=== PATIENT | female | born 1980 | race Caucasian/White ===

== ENCOUNTER 2017-05-03 12:38 | Inpatient (IN) | payer MEDICAID ==
[~2017-05-03] VITALS: Ht 160 cm; Wt 95.3 kg
[2017-05-03 12:53] VITALS: BP 125/68
--- NOTE | 2017-05-03 12:58 | NUR ---
PT AMBULATED TO BED 2
--- NOTE | 2017-05-03 12:58 | NUR ---
Note undone in EDM - 05/03/17 at 1442 by [email or web address] PATIENT PRESENTS TO ED WITH ABDOMINAL PAIN AND N/V FROM POAST GASTRIC SURGERY IN [place]. SKIN IS PINK/WARM/DRY; AAOX4 WITH EVEN AND STEADY GAIT; LUNGS CLEAR BL; HR EVEN AND REGULAR; PT DENIES ANY FEVER, CP, SOB, OR COUGH AT THIS TIME; PATIENT STATES PAIN OF 10/10 AT THIS TIME; VSS; PATIENT POSITIONED FOR COMFORT; HOB ELEVATED; BEDRAILS UP X2; BED DOWN. ER MD MADE AWARE OF PT STATUS.
--- NOTE | 2017-05-03 12:58 | NUR ---
PATIENT PRESENTS TO ED WITH ABDOMINAL PAIN AND C/O N/POST GASTRIC BYPASS IN [place] . SKIN IS PINK/WARM/DRY; AAOX4 WITH EVEN AND STEADY GAIT; LUNGS CLEAR BL; HR EVEN AND REGULAR; PT DENIES ANY FEVER, CP, SOB, OR COUGH AT THIS TIME; PATIENT STATES PAIN OF 9/10 AT THIS TIME; VSS; PATIENT POSITIONED FOR COMFORT; HOB ELEVATED; BEDRAILS UP X2; BED DOWN. ER MD MADE AWARE OF PT STATUS.
[2017-05-03] MEDS ORDERED: NACL 0.9% 1,000 ML IV ONE (13:00)
[2017-05-03 13:47] LABS: APPEARANCE,URINE CLEAR (CLEAR); BLOOD, URINE 3+ (NEGATIVE); COLOR,URINE YELLOW (YELLOW); LEUKOCYTE ESTERASE ,URINE NEGATIVE (NEGATIVE); NITRITE, URINE NEGATIVE (NEGATIVE); UGLUCOSE NEGATIVE (NEGATIVE)
[2017-05-03 14:01] LABS: BASOPHILS # (AUTO) 0.1 K/uL (0.00-0.22); BASOPHILS % (AUTO) 1.2 % (0.0-2.0); EOSINOPHILS # (AUTO) 0.2 K/uL (0-0.4); EOSINOPHILS % (AUTO) 2.1 % (0.0-4.0); HEMOGLOBIN 13.3 g/dL (12.0-16.0); LYMPHOCYTES # (AUTO) 1.1 K/uL (2.5-16.5); LYMPHOCYTES % (AUTO) 9.8 % (20.5-51.1); MEAN CORPUSCULAR HEMOGLOBIN 29 pg (27-31); MEAN CORPUSCULAR HGB CONC 32 g/dL (33-37); MEAN CORPUSCULAR VOLUME 88.1 fL (80-94); MONOCYTES # (AUTO) 0.5 K/uL (0.8-1.0); MONOCYTES % (AUTO) 4.4 % (1.7-9.3); NEUTROPHILS % (AUTO) 82.5 % (42.2-75.2); PLATELET COUNT (AUTO) 206 K/uL (140-450); RED BLOOD CELL COUNT(AUTO) 4.66 MIL/uL (4.20-5.40); RED CELL DISTRIBUTION WIDTH 11.8 % (11.6-13.7); WHITE BLOOD COUNT (AUTO) 10.9 K/uL (4.8-10.8)
[2017-05-03 14:14] LABS: BILIRUBIN,URINE NEGATIVE (NEGATIVE)
[2017-05-03 14:21] LABS: RBC,URINE 80-100 /HPF (0-5); WBC,URINE 16-25 (MOD) /HPF (0-5)
--- NOTE | 2017-05-03 14:58 | NUR ---
PT TAKEN TO CT
--- NOTE | 2017-05-03 15:17 | NUR ---
Pt returned from ct via gurney accompanied by radiology interventional physician. Returned to rm 2 without incident.
--- NOTE | 2017-05-03 15:23 | NUR ---
cinthia gonzales kwaw by bedside examining patient
[2017-05-03 15:44] LABS: ANION GAP 23.4 (8-16); CARBON DIOXIDE 13.3 mmol/L (21-32); POTASSIUM 3.7 mmol/L (3.5-5.1)
[2017-05-03 15:45] LABS: CREATININE 0.8 mg/dL (0.6-1.3)
[2017-05-03 15:46] LABS: ALBUMIN 3.7 g/dL (3.4-5.0); TOTAL BILIRUBIN 0.4 mg/dL (0.0-1.0)
[2017-05-03] MEDS ORDERED: metroNIDAZOLE 500 MG/NS PREMIX 100 ML IV ONE (16:05)
[2017-05-03] MEDS ORDERED: MORPHINE SULFATE 4 MG/ML SYR IVP ONE (17:10)
[2017-05-03] MEDS ORDERED: ONDANSETRON 4 MG/2 ML VIAL IVP ONE (17:10)
[2017-05-03] MEDS ORDERED: LORazepam 2 MG/ML VIAL IVP ONE (17:10)
[2017-05-03] MEDS: NACL 0.9% 1,000 ML IV SCH (17:36)
[2017-05-03] MEDS ORDERED: DOCUSATE SODIUM 100 MG GELCAP PO PRN (17:40)
[2017-05-03] MEDS ORDERED: ACETAMINOPHEN 325 MG TAB PO PRN (17:40)
[2017-05-03] MEDS ORDERED: MORPHINE SULFATE 2 MG/ML SYR IVP PRN (17:40)
[2017-05-03 18:49] LABS: AMYLASE 45 U/L (25-115); CHOL/HDL RATIO 3.8 (1-4.5); FREE T4 (FREE THYROXINE) 0.92 ng/dL (0.76-1.46); HDL CHOLESTEROL 51 mg/dL (40-60); LACTATE DEHYDROGENASE 296 U/L (81-234); LDL (CALC) 117 mg/dL (60-100); MAGNESIUM 1.7 mg/dL (1.8-2.4); PHOSPHORUS 3.1 mg/dL (2.5-4.9); THYROID STIMULATING HORMONE 1.78 uIU/mL (0.34-3.74); TRIGLYCERIDES 121 mg/dL (30-150)
[2017-05-03 18:50] LABS: PROTHROMBIN TIME 12.6 secs (10.8-13.4)
--- NOTE | 2017-05-03 18:54 | NUR ---
Patient will be admitted to care of [facility]. Admited to Tele. Will go to room 106a. Belongings list completed. Bedside report to Wanda HAGAN.
--- NOTE | 2017-05-03 19:00 | NUR ---
PATIENT ARRIVED ON UNIT, ER NURSE GAVE REPORT AT BEDSIDE. PATIENT IS AAOX4, NO S/S OF ACUTE DISTRESS ON ROOM AIR, NO C/O PAIN, IV NOTED ON THE RIGHT AC 20G WITH IVF'S INFUSING WELL, ON TELE MONITOR, NOTED HEALED SCAR ON THE ABD FROM PRIOR BYPASS SURGERY DONE IN [place]. C/O WATERY BLOODY DIARRHEA. DISCUSSED POC WITH PATIENT, SHE VERBALIZED UNDERSTANDING, V/S TAKEN WILL ENDORSED PATIENT IN STABLE CONDITION TO NIGHT NURSE.
--- NOTE | 2017-05-03 19:30 | NUR ---
INSTRUCTED HOW TO COLLECT BM FOR STOOL C-DIFF, VERBALIZED UNDERSTANDING. WILL CALL NURSE WHEN SPECIMEN AVAILABLE. Addendum: 05/03/17 at 2245 by Ankita Dodge LVN ERROR:TIME OF THIS ENTRY IS 2129, NOT 1929.
[2017-05-03 19:35] VITALS: BP 105/49
[2017-05-03] MEDS ORDERED: MAG SULF 2000 MG/WATER PREMIX 50 ML IV SCH (19:35)
--- NOTE | 2017-05-03 19:35 | NUR ---
Admitted from ER TO TELEMETRY UNIT , with chief complaint of DIARRHEA, ABDOMINAL AND BACK PAIN, STARTED YESTERDAY, 36 y/o ,Female, Cooperative, AWAKE, A/OX4. RESPIRATION EVEN AND UNLABORED. WITH POSITIVE BOWEL SOUNDS ON ALL QUADRANTS, WITH HEALED SCAR IN THE ABDOMEN, HAD GASTRIC BYPASS LAST APRIL 27, 2017 IN [place]. STATED HAD SEVEN TIMES DIARRHEA BEFORE COMING TO THE HOSPITAL. LAST BM IS AT 1607 IN ER, HAD LOOSE, YELLOWISH BM, MODERATE AMOUNT. HEAD TO TOE ASSESSMENT DONE, SKIN IS INTACT. PLAN OF CARE FOR THE SHIFT DISCUSSED. VERBALIZED UNDERSTANDING. DENIES PAIN 0/10 oriented to call light, bed, phone,television, bathroom, smoking policy, visiting hours, procedures, ID bracelet on. Belongings list checked. Addendum: 05/04/17 at 0209 by Ankita Dodge LVN CORRECTION IN THIS ENTRY: SURGICAL INCISION IN THE ABDOMEN (3), THREE COVERED WITH DRESSING DRY AND INTACT.(1) INCISION IN THE LEFT SIDE OF ABDOMEN NOTED WITH SEROSANGUINEOUS DISCHARGE, MINIMAL AMOUNT. WILL INFORM .
--- NOTE | 2017-05-03 19:36 | NUR ---
Patient's Plan of Care was discussed and reviewed with INSURANCE LEGAL ASSISTANT: HUGO JOHNSON
--- NOTE | 2017-05-03 19:45 | NUR ---
AMBULATED TO TO VOID, ASSISTED BY BOYFRIEND. GAIT STEADY.
[2017-05-03] MEDS: LEVOFLOXACIN 750 MG/D5W PREMIX 150 ML IV SCH (20:15)
[2017-05-03] MEDS: LOPERAMIDE 2 MG CAP PO SCH (21:00)
[2017-05-03] MEDS: BISMUTH SUBSALICYLATE 15 ML UDBTL PO SCH (21:00)
--- NOTE | 2017-05-03 21:00 | NUR ---
INFORMED DR. BAKER, WE NEED TO COLLECT STOOL SPECIMEN FOR C-DIFF, IMODIUM AND PEPTO BISMUTH CANNOT BE GIVEN YET. STATED IT'S OK.
--- NOTE | 2017-05-03 23:00 | NUR ---
APPLIED BILATERAL LEG SEQUENTIALS.
[2017-05-03] MEDS: HYDROcodone/APAP 7.5/325 MG 1 TAB PO PRN (23:33)
[2017-05-04] VITALS: BP_SYST 108; BP_SYST 97; BP_DIAS 47; BP_DIAS 57
--- NOTE | 2017-05-04 | NUR ---
WENT TO BR TO VOID, DENIES DIARRHEA.
[2017-05-04] MEDS: NACL 0.9% 1,000 ML IV SCH ×2 (01:18→05:47)
[2017-05-04 04:00] VITALS: BP 97/47
--- NOTE | 2017-05-04 04:00 | NUR ---
ON A SPECIAL DIET WRITTEN BY WHO DID GASTRIC BYPASS, SHOWED TO DR. BAKER, WILL ORDER CLEAR LIQUID FOR PATIENT BUT PATIENT SAID SHE CANNOT HAVE SUGAR IN HER DIET. AWAKE MOST OF THE TIME, STATED SLEPT ONLY FOR 2 HOURS. ADVISED TO GO BACK TO SLEEP.
[2017-05-04] MEDS: ONDANSETRON 4 MG/2 ML VIAL IM/IVP PRN ×2 (04:30→21:09)
--- NOTE | 2017-05-04 04:30 | NUR ---
NAUSEATED, MEDICATED WITH ZOFRAN 4 MG. IVP BY DANYA DAIGLE.
--- NOTE | 2017-05-04 05:00 | NUR ---
NO NAUSEA NOTED, RESTING COMFORTABLY IN BED.
[2017-05-04] MEDS: metroNIDAZOLE 500 MG/NS PREMIX 100 ML IV SCH ×3 (05:57→21:05)
[2017-05-04 06:56] LABS: BASOPHILS # (AUTO) 0.1 K/uL (0.00-0.22); BASOPHILS % (AUTO) 1.4 % (0.0-2.0); EOSINOPHILS # (AUTO) 0.2 K/uL (0-0.4); EOSINOPHILS % (AUTO) 2.2 % (0.0-4.0); HEMATOCRIT 36.8 % (36-48); HEMOGLOBIN 12.1 g/dL (12.0-16.0); LYMPHOCYTES # (AUTO) 1.1 K/uL (2.5-16.5); LYMPHOCYTES % (AUTO) 11.7 % (20.5-51.1); MEAN CORPUSCULAR HEMOGLOBIN 29 pg (27-31); MEAN CORPUSCULAR HGB CONC 33 g/dL (33-37); MEAN CORPUSCULAR VOLUME 88.1 fL (80-94); MONOCYTES # (AUTO) 0.6 K/uL (0.8-1.0); MONOCYTES % (AUTO) 6.6 % (1.7-9.3); NEUTROPHILS # (AUTO) 7.2 K/uL (1.8-7.7); NEUTROPHILS % (AUTO) 78.1 % (42.2-75.2); PLATELET COUNT (AUTO) 207 K/uL (140-450); RED BLOOD CELL COUNT(AUTO) 4.18 MIL/uL (4.20-5.40); RED CELL DISTRIBUTION WIDTH 11.5 % (11.6-13.7); WHITE BLOOD COUNT (AUTO) 9.3 K/uL (4.8-10.8)
--- NOTE | 2017-05-04 07:00 | NUR ---
NO DIARRHEA NOTED DURING SHIFT. WILL ENDORSE TO AM NURSE FOR CONTINUITY OF CARE.
--- NOTE | 2017-05-04 07:30 | NUR ---
RECEIVED REPORT FROM BOOKMOBILE DRIVER NURSE AT BEDSIDE FOR CONTINUITY OF CARE. PT IS AWAKE AND ORIENTED. INTRODUCED SELF AND UPDATED BOARD. PT REPORTED SHE HAD A BM. COLLECTED STOOL FOR CULTURE. BROWN LIQUID STOOL OF SMALL AMOUNT NOTED. PT REPORTED FEELING MILD DIZZINESS BUT DENIES PAIN. EDUCATED PT ON SAFETY PRECAUTIONS DUE TO LOW BP AND TO RISE SLOWLY WHEN GETTING OUT OF BED. PT VERBALIZED UNDERSTANDING. NO SIGNS OF DISTRESS. CLEAR LUNG SOUNDS ON AUSCULTATION. O2 SAT 100% ON RA. SKIN WARM AND DRY. IV TO R WRIST 24G INTACT. NS @130ML/HR. PT HAS FAMILY MEMBER AT BEDSIDE. BED IN LOW POSITION, WHEELS LOCKED, CALL LIGHT WITHIN REACH. WILL CONTINUE TO MONITOR.
[2017-05-04 08:00] VITALS: BP 102/51
[2017-05-04 08:30] LABS: CREATININE 0.7 mg/dL (0.6-1.3)
[2017-05-04 08:37] LABS: T4 (THYROXINE) 5.5 ug/dL (4.5-12.0)
[2017-05-04] MEDS ORDERED: MORPHINE SULFATE 2 MG/ML SYR IVP PRN (08:40)
[2017-05-04 09:03] LABS: POTASSIUM 3.7 mmol/L (3.5-5.1)
[2017-05-04 09:11] LABS: ANION GAP 19.7 (8-16)
[2017-05-04] MEDS: LACTOBACILLUS RHAMNOSUS GG 1 EACH CAP PO SCH (09:36)
[2017-05-04] MEDS: BISMUTH SUBSALICYLATE 15 ML UDBTL PO SCH ×2 (09:36→21:05)
[2017-05-04] MEDS: LOPERAMIDE 2 MG CAP PO SCH (09:36)
--- NOTE | 2017-05-04 09:36 | NUR ---
ADMINISTERED SCHEDULED MEDS. PROVIDED TEACHING ON PURPOSE OF MEDS AND SIDE EFFECTS. PT VERBALIZED UNDERSTANDING. TOLERATED MEDS WELL. NO COMPLAINTS AT THIS TIME. DR. MCFARLANE IN ROOM SPEAKING WITH PT AND FAMILY. WILL CONTINUE TO MONITOR.
--- NOTE | 2017-05-04 10:04 | NUR ---
FAXED INITIAL REVIEW TO [facility] [phone] PHONE [phone] Addendum: 05/04/17 at 1246 by Caro Acuña CM CALLED [facility]. WAS TOLD REVIEW GO TO THE SEE CASTRO.
[2017-05-04] MEDS ORDERED: CALCIUM CARB/VIT-D 500 MG/200 IU 1 TAB PO SCH (12:00)
[2017-05-04] MEDS: HYDROcodone/APAP 7.5/325 MG 1 TAB PO PRN (14:12)
--- NOTE | 2017-05-04 14:12 | NUR ---
PT STATED SHE HAD ABD PAIN 5/10. ADMINISTERED NORCO FOR PAIN. PT TOLERATED WELL. CONTINUED NPO. INFORMED PT WAITING FOR GI CONSULT. VERBALIZED UNDERSTANDING. FAMILY MEMBER AT BEDSIDE. NO SIGNS OF DISTRESS. CALL LIGHT WITHIN REACH. WILL CONTINUE TO MONITOR.
[2017-05-04 16:00] VITALS: BP 94/50
--- NOTE | 2017-05-04 16:26 | NUR ---
REASSESSED PT'S PAIN. PT STATED 02/16 AND PAIN IS BETTER NOW. STARTED PT ON FULL LIQUID DIET. PT VERBALIZED UNDERSTANDING. FAMILY MEMBER AT BEDSIDE. CALL LIGHT WITHIN REACH. WILL CONTINUE TO MONITOR.
--- NOTE | 2017-05-04 18:30 | NUR ---
DR. BAEZA CAME IN AND SAW PT GENERAL SURGERY CONSULT.
--- NOTE | 2017-05-04 19:20 | NUR ---
ENDORSED PT TO MEDICAL TRANSPORT SPECIALIST NURSE ALEXIA AT BEDSIDE FOR CONTINUITY OF CARE. FAMILY MEMBERS AT BEDSIDE. PT IN STABLE CONDITION.
--- NOTE | 2017-05-04 19:21 | NUR ---
RECEIVED BEDSIDE REPORT FROM DAY SHIFT NURSE EDGARD RN, PT STABLE, NO DISTRESS NOTED, IV TO R AC 24G, INFUSING WELL, PATENT, INTACT, PT ON ROOM AIR, NO SOB, INITIAL ASSESSMENT DONE, ALL SAFETY PRECAUTION MET, WILL CONTINUE TO MONITOR.
[2017-05-04] MEDS: LEVOFLOXACIN 750 MG/D5W PREMIX 150 ML IV SCH (20:01)
--- NOTE | 2017-05-04 21:19 | NUR ---
DUE MEDICATION GIVEN, PT TOLERATED WELL, PT STATED HAVING TROUBLE SLEEPING THE NIGHT BEFORE AND REQUESTED MEDICATION TO HELP HER SLEEP, DR. ABKER NOTIFIED, STATED HE WILL ORDER MEDICATION. PT ALSO STATED THAT SHE FEELS THAT SHE IS HAVING ALOT OF GAS AND IT IS DISCOMFORTING HER, DR. BAKER NOTIFIED. STATED HE WILL SEE THE PT.
[2017-05-04] MEDS ORDERED: ZOLPIDEM 5 MG TAB PO PRN (21:25)
--- NOTE | 2017-05-04 23:00 | NUR ---
DR. ABKER SAW PT, PT C/O OF BLOOD COMING FROM INCISION ON THE L ABD SITE, STATED TO CLEAN WITH CHLORHEXIDINE, AND PUT STERISTRIPS, CONTINUED WITH ORDER, PT TOLERATED WELL, STATED HE WILL ORDER MEDICATION FOR PT GI DISCOMFORT. WILL ADMINISTER MEDICATION WHEN ORDERED.
[2017-05-04] MEDS ORDERED: ALUMINUM HYD/MAG/SIMETHICONE 30 ML UDC PO PRN (23:50)
[2017-05-05] VITALS: BP 101/53
--- NOTE | 2017-05-05 00:11 | NUR ---
MEDICATION FOR GI DISCOMFORT GIVEN, PT STABLE, NO DISTRESS NOTED, CALL LIGHT WITHIN REACH, WILL CONTINUE TO MONITOR.
--- NOTE | 2017-05-05 03:03 | NUR ---
CHECKED ON PT, PT SLEEPING, NO DISTRESS NOTED, CALL LIGHT WITHIN REACH, WILL CONTINUE TO MONITOR.
[2017-05-05] MEDS: metroNIDAZOLE 500 MG/NS PREMIX 100 ML IV SCH ×2 (04:36→12:43)
[2017-05-05] MEDS: HYDROcodone/APAP 7.5/325 MG 1 TAB PO PRN (04:38)
[2017-05-05 07:17] LABS: ANION GAP 17.3 (8-16); CREATININE 0.7 mg/dL (0.6-1.3); POTASSIUM 3.3 mmol/L (3.5-5.1)
--- NOTE | 2017-05-05 07:26 | NUR ---
ENDORSED PLAN OF CARE TO DAY SHIFT NURSE KRYSTAL RN, PT STABLE, NO DISTRESS NOTED, CALL LIGHT WITHIN REACH.
--- NOTE | 2017-05-05 07:30 | NUR ---
RECEIVED BEDSIDE REPORT FROM METAL FILER NURSE RN, PT IS AAOX4, NO DISTRESS NOTED ON RM AIR, IV TO R WRIST 24G, FLUSHED, PATENT, INTACT. NO SOB, INITIAL ASSESSMENT DONE, ALL SAFETY PRECAUTION MET, WILL CONTINUE TO MONITOR.
[2017-05-05 07:33] LABS: BASOPHILS # (AUTO) 0.1 K/uL (0.00-0.22); BASOPHILS % (AUTO) 1.6 % (0.0-2.0); EOSINOPHILS # (AUTO) 0.2 K/uL (0-0.4); HEMOGLOBIN 11.7 g/dL (12.0-16.0); LYMPHOCYTES # (AUTO) 1.1 K/uL (2.5-16.5); LYMPHOCYTES % (AUTO) 13.7 % (20.5-51.1); MEAN CORPUSCULAR HEMOGLOBIN 29 pg (27-31); MEAN CORPUSCULAR HGB CONC 34 g/dL (33-37); MEAN CORPUSCULAR VOLUME 86.9 fL (80-94); MONOCYTES # (AUTO) 0.6 K/uL (0.8-1.0); MONOCYTES % (AUTO) 7.9 % (1.7-9.3); NEUTROPHILS # (AUTO) 5.8 K/uL (1.8-7.7); NEUTROPHILS % (AUTO) 73.8 % (42.2-75.2); PLATELET COUNT (AUTO) 200 K/uL (140-450); RED BLOOD CELL COUNT(AUTO) 4.02 MIL/uL (4.20-5.40); RED CELL DISTRIBUTION WIDTH 11.9 % (11.6-13.7); WHITE BLOOD COUNT (AUTO) 7.8 K/uL (4.8-10.8)
[2017-05-05 08:00] VITALS: BP 105/51
--- NOTE | 2017-05-05 08:00 | NUR ---
4 INCISIONS NOTED ON THE ABD. INCISIONS COVERED WITH STERI STRIPS. FOR THE MOST LEFT INCISION, SWABBED WITH CHLORHEXIDINE AND REINFORCED WITH NEW STERI STRIPS. Addendum: 05/05/17 at 1325 by Volodymyr Chavez RN NO DRAINAGE NOTED FROM INCISIONS.
[2017-05-05 08:21] LABS: HEPATITIS A ANTIBODY IGM Negative (Negative)
[2017-05-05] MEDS ORDERED: CALCIUM CARB/VIT-D 500 MG/200 IU 1 TAB PO SCH (09:00)
[2017-05-05] MEDS: LACTOBACILLUS RHAMNOSUS GG 1 EACH CAP PO SCH (09:32)
--- NOTE | 2017-05-05 10:00 | NUR ---
PT'S SISTER HELPED PT WITH ADLS. SUPPLIES HAS BEEN PROVIDED.
--- NOTE | 2017-05-05 11:13 | NUR ---
PATIENT HAS BEEN SCREENED AND CATEGORIZED MODERATE NUTRITION RISK. PATIENT WILL BE SEEN WITHIN 3-5 DAYS OF ADMISSION. 05/06/17 - 05/08/[address]
[2017-05-05] MEDS ORDERED: ALUMINUM HYD/MAG/SIMETHICONE 30 ML UDC PO PRN (12:30)
[2017-05-05] MEDS ORDERED: POTASSIUM CHLORIDE 20% 40 MEQ/15 ML UDC PO SCH (12:34)
[2017-05-05] MEDS ORDERED: PANTOPRAZOLE 40 MG TABEC PO SCH (13:00)
--- NOTE | 2017-05-05 14:21 | NUR ---
CM NOTE CONCURRENT REVIEW FAXED TO [facility] ([facility]) / FAX# [phone], C: #[phone]
[2017-05-05 16:00] VITALS: BP 107/65
[2017-05-05] MEDS ORDERED: PANT40EC28 PO (16:20)
[2017-05-05] MEDS ORDERED: METR250T2 PO (16:20)
[2017-05-05] MEDS ORDERED: LACT10CA PO (16:20)
[2017-05-05] MEDS ORDERED: ONDA4TAB PO (16:20)
--- NOTE | 2017-05-05 17:50 | NUR ---
PT AMB TO RESTROOM AND HAD A BM WHICH GREENISH COLOR, SOFT AND FORMED. NO LIQUID DIARRHEA NOTED.
--- NOTE | 2017-05-05 17:55 | NUR ---
PT DISCHARGED PER MD ORDER. DISCHARGE INSTRUCTIONS AND MEDICATION TEACHING GIVEN. PT AND FAMILY MEMBER VERBALIZED UNDERSTANDING. PT DENIES NAUSEA AND VOMITING AT THIS TIME. ABD PAIN 2/10 TOLERABLE. PIC TAKEN FOR ABD INCISION OF GASTRIC SLEEVE SX WHICH PT HAD IN [place] A WEEK AGO. PROVIDED PT WITH MORE STERI STRIPS AND GAUZE FOR CLEANING. IV DC'D, TIP INTACT, PRESSURE APPLIED. PT LEFT IN STABLE CONDITION AND WITH ALL HER BELONGINGS.
[2017-05-06] MEDS ORDERED: PANTOPRAZOLE 40 MG TABEC PO SCH (06:30)
[2017-05-06] MEDS ORDERED: POTASSIUM CHLORIDE 20% 40 MEQ/15 ML UDC PO SCH (09:00)
--- NOTE | 2017-05-06 13:05 | NUR ---
D/C summary faxed to [facility] at [phone] and to [facility] at [phone]
== END 2017-05-05 17:55 | disposition home or self-care (01) | DRG 248 ==
LOC: MED 12:38 → MTU 17:43
PROVIDERS: ADMIT Family Medicine Sports Medicine; ATTEND Family Medicine Sports Medicine
DX: A04.72 Enterocolitis due to Clostridium difficile, not specified as recurrent (principal); E83.42 Hypomagnesemia; N39.0 Urinary tract infection, site not specified; K58.0 Irritable bowel syndrome with diarrhea; K57.30 Diverticulosis of large intestine without perforation or abscess without bleeding; K31.89 Other diseases of stomach and duodenum; E66.01 Morbid (severe) obesity due to excess calories; Z68.37 Body mass index [BMI] 37.0-37.9, adult; Z98.84 Bariatric surgery status
CPT/HCPCS: 36415; 71045; 76700; 80048; 80053; 81001; 81025; 82140; 82150; 82272; 82550; 83036; 83615; 83690; 83735; 83880; 84100; 84436; 84439; 84443; 84479; 84484; 85025; 85610; 85730; 86708; 86709; 87040; 87045; 87070; 87081; 87086; 89055; 93005; 96361; 96365; 96375; 99285; G0482; J1644; J1956; J2060; J2270; J2405; J3475; J3490; J7030; Q0092; Q9967